=== PATIENT | male | born 1955 | race Caucasian/White ===

== ENCOUNTER 2019-05-29 07:05 | Day surgery (SDC) | payer MEDICAID ==
[~2019-05-29] VITALS: Ht 188 cm; Wt 100.0 kg
[2019-05-29 07:28] LABS: BASOPHILS 0.4 % (0-2); EOSINOPHILS 3.2 % (0-7); HEMATOCRIT 47.3 % (42.0-54.0); HEMOGLOBIN 16.3 g/dL (13.5-17.5); IMMATURE GRANULOCYTES 0.3 % (0-5); LYMPHOCYTES 20.9 % (15-50); MCH 32.5 pg (26.0-34.0); MCHC 34.5 g/dL (31.0-37.0); MCV 94.4 fL (80.0-100.0); MEAN PLATELET VOLUME 8.6 fL (7.4-10.4); MONOCYTES 7.2 % (2-11); PLATELET COUNT 343 10x3/uL (130-400); RBC 5.01 10x6/uL (4.20-6.10); RDW 14.2 % (11.5-14.5); WBC 9.2 10x3/uL (4.8-10.8)
[2019-05-29 07:46] LABS: ANION GAP 13.8 mmol/L (8-16); CARBON DIOXIDE 25.6 mmol/L (21.0-32.0); CREATININE - SERUM 2.6 mg/dL (0.6-1.3); POTASSIUM - SERUM 4.4 mmol/L (3.5-5.1)
[2019-05-29 07:54] VITALS: BP 142/90; Ht 188 cm; Wt 100.0 kg
[2019-05-29] MEDS ORDERED: ULTRAM50 MG (08:00)
[2019-05-29] MEDS ORDERED: CIPRO250 MG (08:00)
[2019-05-29] MEDS ORDERED: COZAAR50 MG PO (08:00)
[2019-05-29] MEDS ORDERED: SODIUM BICARBO650 MG PO (08:00)
--- NOTE | 2019-05-29 11:00 | NUR ---
[address] BANERJEE FOR PT. DISCHARGE INSTRUCTIONS GIVEN TO PT WHO VOICES UNDERSTANDING. 1052 IV DC'D. CATHETER TIP INTACT. NO BLEEDING AT SITE AFTER HOLDING PRESSURE. BANDAID APPLIED.
--- NOTE | 2019-05-30 11:34 | OP ---
PATIENT NAME: SVITLANA DOMÍNGUEZ MEDICAL RECORD: [id number] :59 LOCATION:[facility] ADMISSION DATE: SURGEON: KVNG OCAMPO DO DATE OF OPERATION: 05/29/2019 PROCEDURE: Colonoscopy with polypectomy, tattoo injection, biopsies. INDICATIONS FOR PROCEDURE: Positive stool guaiac and abnormal weight loss. SCOPE: Olympus video pediatric colonoscope. MEDICATIONS: Propofol 1050 mg IV per anesthesia. WITHDRAWAL TIME: 48 minutes. ESTIMATED BLOOD LOSS: Minimal. COMPLICATIONS: None immediate. FINDINGS: Informed consent was given. The patient was made comfortable with the above medication. After reaching an adequate level of sedation by slow IV push, the patient was placed in the left side. A digital rectal examination was performed and was normal. The endoscope was then advanced under direct visualization through the rectum to the cecum, confirmed by the presence of the appendiceal orifice and ileocecal valve. In the cecum, there were 2 benign appearing sessile polyps, which ranged in size from 3 mm to 7 mm in diameter. One polyp was removed using hot snare and the other was removed using endoscopic mucosal resection technique with injection of a saline pillow, followed by snare polypectomy. In the hepatic flexure, there was a large polyp measuring approximately 3 to 3.5 cm in size. It was a flat polyp expanding over a fold. There were some depressions in this polyp, which raises suspicion of possible invasion into the muscularis. Cold forceps biopsies were taken to submit for pathology and to obtain further information regarding the polyp to aid in further intervention. The site was tattooed just distal to the polyp using 2 separate injections. In the transverse colon, there was a sessile broad-based polyp, which measured approximately 1.5 cm in size to 2 cm in size. It was removed using hot snare. In the descending colon, there were 5 separate benign-appearing sessile polyps, which ranged in size from 4 mm to 1 cm in size. They were all removed using a hot snare. In the rectum, there were two separate benign-appearing sessile polyps, which ranged in size from 4-6 mm in diameter. They were both removed using a hot snare. There was evidence of mild diverticulosis involving the descending and sigmoid colon. Retroflexion was performed in the rectum with a normal-appearing rectal wall visualized. The endoscope was withdrawn from the patient. The patient tolerated the procedure well and there were no immediate complications. IMPRESSIONS: 1. Multiple polyps as described above, removed using a combination of EMR technique and hot snare as well as cold forceps biopsies of his polyp that are still in place in the hepatic flexure. This polyp was tattooed using 2 separate injections of Jennifer ink just distal to the polyp site. 2. Mild diverticulosis of the descending and sigmoid colon. PLAN AND RECOMMENDATIONS: 1. Discharge home when recovery parameters are met. OPERATIVE REPORT [id number] SVITLANA DOMÍNGUEZ 2. Follow up biopsy specimen results. 3. High fiber diet. 4. Continue current medications. 5. Further intervention of hepatic flexure polyp will be dependent on biopsy results. I anticipate referring the patient to Dr. Mancuso for further endoscopic management versus surgical resection, pending biopsy results. TRANSINT:[id number] Voice Confirmation ID: [id number] DOCUMENT ID: [id number] KVNG OCAMPO DO at 1134 CC: [id number] DICTATION DATE: 05/29/19 1012 [facility] DEVELOPER: 05/29/[address] [facility] 05/29/19 [facility] [address] [place] [address]
== END 2019-05-29 10:58 | disposition home or self-care (01) ==
LOC: D.OPS 07:05
PROVIDERS: Anesthesiology; ATTEND Internal Medicine Gastroenterology
DX: R19.5 Other fecal abnormalities (principal); R63.4 Abnormal weight loss

== ENCOUNTER 2019-12-12 12:46 | Outpatient (CLI) | payer MEDICAID ==
[~2019-12-12] VITALS: Ht 188 cm; Wt 95.0 kg
[~2019-12-12 12:46] MED LIST: CIPRO250 MG; COZAAR50 MG PO; SODIUM BICARBO650 MG PO; ULTRAM50 MG
[2019-12-12 14:21] VITALS: Ht 188 cm; Wt 95.0 kg
--- NOTE | 2019-12-12 14:41 | NUR ---
AFTER PICC LINE INSERTION, FIRST DOSE OF ANTIBIOTIC CEFIPINE GIVEN PER ORDERS.
== END 2019-12-12 15:04 | disposition home or self-care (01) ==
LOC: D.OPS 12:46
PROVIDERS: ATTEND Family Medicine
DX: N39.0 Urinary tract infection, site not specified (principal)